=== PATIENT | female | born 1935 | race Caucasian/White ===

== ENCOUNTER 2021-03-05 15:16 | Emergency (ER) | payer OTHER ==
[~2021-03-05] VITALS: Ht 165.1 cm; Wt 68.0 kg
[~2021-03-05 15:16] MED LIST: ALIGN4 MG PO; ASPIRIN325 PO; DIOVAN HCT 3201 EAC1 PO; DULCOLAX5 MG PO; FISH OIL 1,0001 EAC8 PO; FLAGYL500 MG PO; LORAZEPAM 22 MG/1 ML SUBLING; MAGNESIUM400 MG PO; NITROSTAT0.4 MG SUBLING; NORVASC 5 MG TAB5 MG; NORVASC5 MG PO; PREMARIN0.625 MG PO; PROTONIX40 M2 PO; PROVENTIL HFA6.7 G1 PO; ROXANOL 20 M20 MG/ML GT; SPIRIVA INH; SYNTHROID112 MCG PO; VANCOCIN 125 M125 M1 PO; VANCOMYCIN HCL250 MG PO; VITAMIN D-32000 UNIT; VITAMIN D-32000 UNIT PO; VITAMIN E400 UNIT PO; VITAMINC500 PO; ZOFRAN4 MG PO; [UNRECOGNIZED DRUG - OTHER] PO
[2021-03-05 16:24] LABS: ABSOLUTE NEUTROPHILS 9.6 thou/uL (1.4-8.2); BASOPHILS 0.6 % (0.0-2.0); EOSINOPHILS 0.1 % (0.0-3.0); HEMOGLOBIN 11.6 gm/dL (12.0-15.0); LYMPHOCYTES 5.3 % (24.0-44.0); MCV 93.8 fL (80.0-100.0); MONOCYTES 2.7 % (1.0-8.0); PLATELET COUNT 291 thou/uL (150-400); POLYS 91.3 % (36.0-66.0); RBC 3.73 mil/uL (4.20-5.00); WBC 10.5 thou/uL (4.0-11.0)
[2021-03-05] MEDS ORDERED: CLONIDINE HCL0.1 MG PO (16:26)
[2021-03-05] MEDS ORDERED: BENICAR20 MG PO (16:26)
[2021-03-05] MEDS ORDERED: CHLORTHALIDONE25 MG PO (16:30)
[2021-03-05 16:37] LABS: CALCIUM 9.9 mg/dL (8.5-10.1); CREATININE 1.3 mg/dL (0.6-1.0); POTASSIUM 4.6 mmol/L (3.5-5.1)
[2021-03-05 16:48] LABS: ALBUMIN 3.3 g/dL (3.4-5.0); TOTAL BILIRUBIN 0.3 mg/dL (0.2-1.0); TOTAL PROTEIN 6.9 g/dL (6.4-8.2)
[2021-03-05 18:14] LABS: URINE BILIRUBIN NEGATIVE (Negative); URINE BLOOD NEGATIVE (Negative); URINE CLARITY CLEAR; URINE COLOR YELLOW; URINE GLUCOSE-RANDOM* NEGATIVE (Negative); URINE KETONES NEGATIVE (Negative); URINE LEUKOCYTES-REFLEX TRACE (Negative); URINE NITRITE-REFLEX NEGATIVE (Negative); URINE PROTEIN (DIPSTICK) 2+ (Negative); URINE SPECIFIC GRAVITY >= 1.030 (1.005-1.035); URINE UROBILINOGEN 0.2 E.U./dl (0.2-1.0)
[2021-03-05] MEDS ORDERED: CITRATE OF MAG296 M1 PO (19:13)
[2021-03-05] MEDS ORDERED: MIRALAX119 GM PO (19:13)
[2021-03-05 19:15] VITALS: BP 168/69
--- NOTE | 2021-03-06 12:30 | EKG ---
[place] [address] [facility] [place] [address] ELECTROCARDIOGRAM REPORT Name: LOS ALMANZA [id number] Admission: 03/05/21 Attend Phys: Discharge: 03/05/21 Date of : [birth year] Report #: [id number] [facility] ED Test Date: 2021-03-05 Test Time: 15:38:09 Pat Name: LOS ALMANZA Department: Room: Gender: F Rheumatology Nurse: khari : 1935 Requested By: Ariadna Vazquez Order Number: [id number] MD: Terrence Brar Measurements Intervals [place] Rate: 85 P: 28 IA: 181 QRS: -45 QRSD: 104 T: 78 QT: 358 QTc: 426 Interpretive Statements Sinus rhythm Left anterior fascicular block Poor R wave progression Compared to ECG 06/11/2015 08:40:19 Left anterior fascicular block now present Left-axis deviation no longer present Electronically Signed On 03-06-2021 12:29:58 POWER MACHINE OPERATOR by Terrence Brar [email or web address] <ELECTRONICALLY SIGNED> By: Terrence Brar MD 03/06/21 1229 D: [id number] Terrence Brar MD /SARAH
== END 2021-03-05 19:30 | disposition home or self-care (01) ==
LOC: ER 15:16
PROVIDERS: Emergency Medicine
DX: R10.84 Generalized abdominal pain (principal); J44.9 Chronic obstructive pulmonary disease, unspecified; I10 Essential (primary) hypertension; M19.90 Unspecified osteoarthritis, unspecified site; Z79.899 Other long term (current) drug therapy; Z90.710 Acquired absence of both cervix and uterus; Z88.2 Allergy status to sulfonamides; Z88.6 Allergy status to analgesic agent

== ENCOUNTER 2021-04-14 02:11 | Inpatient (IN) | payer OTHER ==
[~2021-04-14] VITALS: Ht 162.6 cm; Wt 87.0 kg
[~2021-04-14 02:11] MED LIST changes: +BENICAR20 MG PO; +CHLORTHALIDONE25 MG PO; +CITRATE OF MAG296 M1 PO; +CLONIDINE HCL0.1 MG PO; +MIRALAX119 GM PO
[2021-04-14 02:12] VITALS: BP 158/85
[2021-04-14 03:41] LABS: ABSOLUTE NEUTROPHILS 10.4 thou/uL (1.4-8.2); BASOPHILS 0.5 % (0.0-2.0); EOSINOPHILS 1.3 % (0.0-3.0); HEMATOCRIT 30.9 % (37.0-47.0); HEMOGLOBIN 10.4 gm/dL (12.0-15.0); LYMPHOCYTES 8.2 % (24.0-44.0); MCH 30.6 pg (26.0-34.0); MCHC 33.7 g/dL (28.0-37.0); MCV 90.8 fL (80.0-100.0); MONOCYTES 7.7 % (1.0-8.0); PLATELET COUNT 343 thou/uL (150-400); POLYS 82.3 % (36.0-66.0); RBC 3.41 mil/uL (4.20-5.00); RDW 13.6 % (10.5-14.5); WBC 12.7 thou/uL (4.0-11.0)
[2021-04-14 03:48] LABS: CALCIUM 9.2 mg/dL (8.5-10.1); CREATININE 1.2 mg/dL (0.6-1.0); POTASSIUM 5.7 mmol/L (3.5-5.1)
[2021-04-14 03:58] LABS: TOTAL BILIRUBIN 0.4 mg/dL (0.2-1.0); TOTAL PROTEIN 6.4 g/dL (6.4-8.2)
[2021-04-14 07:56] VITALS: BP 155/56
--- NOTE | 2021-04-14 08:18 | EKG ---
[address] [place] [address] ELECTROCARDIOGRAM REPORT Name: LOS ALMANZA Room #: 170-4 ADM IN M.R.#: [id number] Admission: 04/14/21 Attend Phys: Audi Hopkins MD Discharge: Date of : [birth year] Report #: [id number] [facility] ED Test Date: 2021-04-14 Test Time: 04:17:40 Pat Name: LOS ALMANZA Department: Room: 170 4 Gender: F Doctor'S Assistant: FERNANDO : 1935 Requested By: Con Gallegos Order Number: [id number] MD: Evangelist Potter Measurements Intervals [place] Rate: 81 P: -10 WA: 146 QRS: -25 QRSD: 101 T: 58 QT: 411 QTc: 477 Interpretive Statements Sinus rhythm Ventricular and atrial premature complexes Borderline left axis deviation Baseline wander in lead(s) V2 Compared to ECG 03/05/2021 15:38:09 Ventricular premature complex(es) now present Left anterior fascicular block no longer present Electronically Signed On 04-14-2021 8:17:51 HYDRO PLANT OPERATOR by Evangelist Potter [email or web address] <ELECTRONICALLY SIGNED> By: Evangelist Potter MD, [facility] 04/14/21 0817 0417 0417 Evangelist Potter MD, [facility] /EPI
[2021-04-14 12:33] VITALS: BP 171/65
[2021-04-14 12:48] VITALS: BP 171/65
[2021-04-14 14:00] VITALS: BP 155/61
--- NOTE | 2021-04-14 14:26 | 2DMMODE ---
[facility] [place] [address] 2 D/M-MODE ECHOCARDIOGRAM Name: LOS ALMANZA Room #: 209-P ADM IN M.R.#: [id number] Admission: 04/14/21 Attend Phys: Janett Bales Discharge: Date of : [birth year] Report #: [id number] THIS REPORT FOR: cc: Matthew Kaplan MD, Todd MD Lammoglia, Francisco J. MD ~ ADDENDUM APPROVED REPORT Study performed: 04/14/2021 12:52:48 EXAM: Comprehensive 2D, Doppler, and color-flow Echocardiogram Patient Location: ER Room #: 15 Status: routine BSA: 2.03 HR: 88 bpm BP: 171/65 mmHg Rhythm: NSR Other Information Study Quality: Good Indications Congestive Heart Failure COPD Atrial Fibrillation Hypertension/HDD 2D Dimensions IVSd: 11.32 (7-11mm) LVOT Diam: 22.28 (18-24mm) LVDd: 44.84 mm PWd: 11.92 (7-11mm) Ascending Ao: 36.08 (22-36mm) LVDs: 28.64 (25-40mm) Left Atrium: 40.40 (27-40mm) Aortic Root: 32.00 mm Aortic Valve AoV Peak Leno.: 1.30 m/s AO Peak Gr.: 6.80 mmHg LVOT Max P.80 mmHg LVOT Max V: 0.97 m/s DENISE Vmax: 2.91 cm2 Mitral Valve E/A Ratio: 1.2 [facility] [place] [place] [address] 2 D/M-MODE ECHOCARDIOGRAM Name: CAMILOS Iman Room #: 209-P [facility] IN .R.#: [id number] Admission: 04/14/21 Attend Phys: Janett Simmons Discharge: Date of : [birth year] Report #: [id number] MV Decel. Time: 177.87 ms MV E Max Leno.: 1.31 m/s MV A Leno.: 1.10 m/s MV PHT: 51.58 ms Pulmonary Valve PV Peak Leno.: 1.37 m/s PV Peak Gr.: 7.56 mmHg Tricuspid Valve TR Peak Leno.: 3.19 m/s TR Peak Gr.: 40.64 mmHg PA Pressure: 51.00 mmHg Left Ventricle The left ventricle is normal size. There is normal LV segmental wall motion. There is normal left ventricular wall thickness. The left ventricular systolic function is normal. The left ventricular ejection fraction is within the normal range. LVEF is 60-65%. This study is not technically sufficient to allow evaluation of the LV diastolic function. Right Ventricle The right ventricle is normal size. The right ventricular systolic function is normal. Atria Left atrium is at the upper limits of normal. Right atrium is at the upper limits of normal. Aortic Valve The aortic valve is normal in structure. The Aortic valve is sclerotic. No aortic regurgitation is present. There is no aortic valvular stenosis. Mitral Valve The mitral valve is normal in structure. Mild mitral regurgitation. No evidence of mitral valve stenosis. Tricuspid Valve The tricuspid valve is normal in structure. There is mild tricuspid regurgitation. Estimated PAP 51 mmHg. There is moderate pulmonary hypertension. Pulmonic Valve The pulmonary valve is normal in structure. There is no pulmonic valvular regurgitation. [facility] [address] [place] [address] 2 D/M-MODE ECHOCARDIOGRAM Name: LOS ALMANZA Room #: 209-P ADM IN M.R.#: [id number] Admission: 04/14/21 Attend Phys: Janett Simmons Discharge: Date of : [birth year] Report #: [id number] Great Vessels The aortic root is normal in size. IVC is dilated and collapses <50% with inspiration. Pericardium There is no pericardial effusion. <Conclusion> The left ventricle is normal size. There is normal left ventricular wall thickness. LVEF is 60-65%. The right ventricle is normal size. Left atrium is at the upper limits of normal. Right atrium is at the upper limits of normal. The aortic valve is normal in structure. The Aortic valve is sclerotic. The mitral valve is normal in structure. Mild mitral regurgitation. The tricuspid valve is normal in structure. There is mild tricuspid regurgitation. Estimated PAP 51 mmHg. There is moderate pulmonary hypertension. The pulmonary valve is normal in structure. The aortic root is normal in size. There is no pericardial effusion. <ELECTRONICALLY SIGNED> By: Scout Zamarripa MD 04/14/21 1425 1425 142 Scout Zamarripa MD /INF
[2021-04-14 19:41] VITALS: BP 157/65
[2021-04-15 03:12] LABS: ABSOLUTE NEUTROPHILS 7.5 thou/uL (1.4-8.2); BASOPHILS 0.2 % (0.0-2.0); EOSINOPHILS 0.1 % (0.0-3.0); HEMATOCRIT 32.4 % (37.0-47.0); HEMOGLOBIN 11.1 gm/dL (12.0-15.0); LYMPHOCYTES 5.9 % (24.0-44.0); MCHC 34.3 g/dL (28.0-37.0); MCV 90.6 fL (80.0-100.0); PLATELET COUNT 323 thou/uL (150-400); POLYS 92.8 % (36.0-66.0); RBC 3.58 mil/uL (4.20-5.00); RDW 13.7 % (10.5-14.5); WBC 8.1 thou/uL (4.0-11.0)
[2021-04-15 03:55] LABS: CALCIUM 9.7 mg/dL (8.5-10.1); CREATININE 1.4 mg/dL (0.6-1.0)
[2021-04-15 04:09] LABS: POTASSIUM 4.4 mmol/L (3.5-5.1)
[2021-04-15 04:36] VITALS: BP 143/60
[2021-04-15 07:21] VITALS: BP 153/52
[2021-04-15 11:25] VITALS: BP 174/56
[2021-04-15 20:15] VITALS: BP 176/79
[2021-04-16 08:00] VITALS: BP 174/56
[2021-04-16 11:00] VITALS: BP 175/72
[2021-04-16 16:00] VITALS: BP 159/62
[2021-04-16 19:49] VITALS: BP 150/56
[2021-04-17 03:30] VITALS: BP 155/74
[2021-04-17 05:59] LABS: CREATININE 1.5 mg/dL (0.6-1.0); POTASSIUM 4.1 mmol/L (3.5-5.1)
[2021-04-17 06:32] LABS: URINE BILIRUBIN NEGATIVE (Negative); URINE BLOOD 1+ (Negative); URINE CLARITY CLEAR; URINE COLOR YELLOW; URINE GLUCOSE-RANDOM* NEGATIVE (Negative); URINE KETONES NEGATIVE (Negative); URINE LEUKOCYTES 1+ (Negative); URINE NITRITE NEGATIVE (Negative); URINE PROTEIN (DIPSTICK) 2+ (Negative); URINE SPECIFIC GRAVITY 1.025 (1.005-1.035); URINE UROBILINOGEN 0.2 E.U./dl (0.2-1.0)
[2021-04-17 07:01] LABS: CASTS None Seen /LPF (None Seen); MUCUS 0-3 Light strn/LPF (None Seen); SQUAMOUS 0-3 Few /LPF (0-3)
[2021-04-17 07:02] LABS: CRYSTALS None Seen /LPF (None Seen); URINE RBC 1-2 Rare /HPF (NONE SEEN); URINE WBC 1-5 Rare /HPF (NONE SEEN)
[2021-04-17 08:10] VITALS: BP 136/46
[2021-04-17 11:50] VITALS: BP 136/54
[2021-04-17 11:56] LABS: CALCIUM 7.1 mg/dL (8.5-10.1); CREATININE 1.1 mg/dL (0.6-1.0)
[2021-04-17 11:58] LABS: BE(vivo) 0.9 mmol/L (-2 to +3); HCO3 29.2 mmol/L (22.0-26.0); PO2 88.2 mmHg (80.0-100.0)
[2021-04-17 11:59] LABS: PCO2 68.2 mmHg (35.0-45.0)
[2021-04-17 11:59] LABS: POTASSIUM 2.9 mmol/L (3.5-5.1)
[2021-04-17 15:50] VITALS: BP 124/45
[2021-04-17 19:15] VITALS: BP 143/61
[2021-04-17 23:20] VITALS: BP 139/48
[2021-04-17 23:53] LABS: BE(vivo) 0.7 mmol/L (-2 to +3); HCO3 29.1 mmol/L (22.0-26.0); PO2 72.1 mmHg (80.0-100.0); sO2 91.3 % (92.0-98.0)
[2021-04-17 23:54] LABS: pH 7.244 (7.360-7.450)
[2021-04-17 23:55] LABS: PCO2 68.8 mmHg (35.0-45.0)
[2021-04-18 04:19] VITALS: BP 141/50
[2021-04-18 05:00] LABS: ALBUMIN 3.1 g/dL (3.4-5.0); CALCIUM 8.6 mg/dL (8.5-10.1); CREATININE 1.5 mg/dL (0.6-1.0); PHOSPHORUS 5.3 mg/dL (2.5-4.9)
[2021-04-18 05:15] LABS: POTASSIUM 5.2 mmol/L (3.5-5.1)
[2021-04-18 07:25] VITALS: BP 147/50
[2021-04-18 09:00] LABS: ALBUMIN 3.2 g/dL (3.4-5.0); CALCIUM 8.8 mg/dL (8.5-10.1); CREATININE 1.5 mg/dL (0.6-1.0); POTASSIUM 5.4 mmol/L (3.5-5.1); TOTAL BILIRUBIN 0.3 mg/dL (0.2-1.0); TOTAL PROTEIN 6.1 g/dL (6.4-8.2)
[2021-04-18 09:21] LABS: BE(vivo) 0.5 mmol/L (-2 to +3); PCO2 53.2 mmHg (35.0-45.0); PO2 89.2 mmHg (80.0-100.0); pH 7.324 (7.360-7.450); sO2 96.1 % (92.0-98.0)
[2021-04-18 11:15] VITALS: BP 136/59
[2021-04-18 15:30] VITALS: BP 141/44
[2021-04-18 20:16] VITALS: BP 160/52
[2021-04-19 03:35] VITALS: BP 146/54
[2021-04-19 07:06] LABS: HEMATOCRIT 26.7 % (37.0-47.0); HEMOGLOBIN 9.2 gm/dL (12.0-15.0); MCH 30.6 pg (26.0-34.0); MCHC 34.4 g/dL (28.0-37.0); MCV 89.1 fL (80.0-100.0); RDW 12.8 % (10.5-14.5); WBC 5.8 thou/uL (4.0-11.0)
[2021-04-19 07:17] LABS: ALBUMIN 3.3 g/dL (3.4-5.0); CALCIUM 8.7 mg/dL (8.5-10.1); CREATININE 1.7 mg/dL (0.6-1.0); MAGNESIUM 2.4 mg/dL (1.8-2.4); POTASSIUM 5.1 mmol/L (3.5-5.1); TOTAL BILIRUBIN 0.7 mg/dL (0.2-1.0); TOTAL PROTEIN 6.4 g/dL (6.4-8.2)
[2021-04-19 07:20] VITALS: BP 135/41
[2021-04-19 11:15] VITALS: BP 140/46
[2021-04-19 11:45] LABS: BE(vivo) 1.6 mmol/L (-2 to +3); HCO3 29.4 mmol/L (22.0-26.0); PCO2 63.5 mmHg (35.0-45.0); PO2 91.9 mmHg (80.0-100.0); sO2 95.9 % (92.0-98.0)
[2021-04-19 11:46] LABS: pH 7.283 (7.360-7.450)
[2021-04-19 16:05] VITALS: BP 147/46
[2021-04-19 20:00] VITALS: BP 152/57
[2021-04-20 03:09] LABS: HEMATOCRIT 27.3 % (37.0-47.0); HEMOGLOBIN 9.4 gm/dL (12.0-15.0); MCH 30.9 pg (26.0-34.0); MCHC 34.5 g/dL (28.0-37.0); MCV 89.5 fL (80.0-100.0); RBC 3.05 mil/uL (4.20-5.00); RDW 13.1 % (10.5-14.5); WBC 7.9 thou/uL (4.0-11.0)
[2021-04-20 04:14] LABS: ALBUMIN 3.4 g/dL (3.4-5.0); CALCIUM 8.8 mg/dL (8.5-10.1); CREATININE 1.8 mg/dL (0.6-1.0); MAGNESIUM 2.3 mg/dL (1.8-2.4); PHOSPHORUS 4.8 mg/dL (2.5-4.9); POTASSIUM 5.3 mmol/L (3.5-5.1)
[2021-04-20 04:45] VITALS: BP 162/53
[2021-04-20 08:29] VITALS: BP 163/51
[2021-04-20 11:54] LABS: CALCIUM 8.9 mg/dL (8.5-10.1); CREATININE 1.8 mg/dL (0.6-1.0); POTASSIUM 4.9 mmol/L (3.5-5.1)
[2021-04-20 17:36] LABS: BE(vivo) 2.6 mmol/L (-2 to +3); HCO3 29.1 mmol/L (22.0-26.0); PCO2 55.1 mmHg (35.0-45.0); PO2 90.1 mmHg (80.0-100.0); sO2 96.3 % (92.0-98.0)
[2021-04-20 18:36] LABS: CALCIUM 8.4 mg/dL (8.5-10.1); CREATININE 1.8 mg/dL (0.6-1.0); POTASSIUM 4.7 mmol/L (3.5-5.1)
[2021-04-20 20:00] VITALS: BP 138/47
[2021-04-21 03:08] LABS: HEMATOCRIT 25.2 % (37.0-47.0); HEMOGLOBIN 8.7 gm/dL (12.0-15.0); MCH 31.3 pg (26.0-34.0); MCHC 34.7 g/dL (28.0-37.0); MCV 90.1 fL (80.0-100.0); RBC 2.79 mil/uL (4.20-5.00); RDW 13.1 % (10.5-14.5); WBC 8.2 thou/uL (4.0-11.0)
[2021-04-21 03:16] LABS: CALCIUM 8.6 mg/dL (8.5-10.1); CREATININE 1.7 mg/dL (0.6-1.0); MAGNESIUM 1.8 mg/dL (1.8-2.4); POTASSIUM 4.8 mmol/L (3.5-5.1)
[2021-04-21 06:13] VITALS: BP 154/59
[2021-04-21 07:24] VITALS: BP 132/48
[2021-04-21 13:57] LABS: CALCIUM 8.8 mg/dL (8.5-10.1); CREATININE 1.8 mg/dL (0.6-1.0); POTASSIUM 4.6 mmol/L (3.5-5.1)
[2021-04-21 15:29] VITALS: BP 118/34
[2021-04-21 20:15] VITALS: BP 121/39
[2021-04-22] VITALS (7 sets, daily range): BP systolic 118–127; BP diastolic 32–35
[2021-04-22 05:04] LABS: CALCIUM 7.9 mg/dL (8.5-10.1); CREATININE 1.9 mg/dL (0.6-1.0); MAGNESIUM 2.6 mg/dL (1.8-2.4); POTASSIUM 4.9 mmol/L (3.5-5.1)
[2021-04-22 05:23] LABS: HEMATOCRIT 23.6 % (37.0-47.0); HEMOGLOBIN 7.9 gm/dL (12.0-15.0); MCH 30.5 pg (26.0-34.0); MCHC 33.7 g/dL (28.0-37.0); MCV 90.7 fL (80.0-100.0); RBC 2.6 mil/uL (4.20-5.00); RDW 12.8 % (10.5-14.5); WBC 16.4 thou/uL (4.0-11.0)
[2021-04-22 08:22] LABS: BE(vivo) 2.9 mmol/L (-2 to +3); HCO3 30.5 mmol/L (22.0-26.0); PCO2 66.3 mmHg (35.0-45.0); PO2 72.4 mmHg (80.0-100.0); pH 7.281 (7.360-7.450); sO2 92.1 % (92.0-98.0)
--- NOTE | 2021-04-22 11:51 | HC ---
[facility] [place] [place] [address] CONSULTATION Name: LOS ALMANZA Room #: 203-P ADM IN M.R.#: [id number] Admission: 04/14/21 Attend Phys: Janett Bales Discharge: Date of : [birth year] Report #: [id number] THIS REPORT FOR: cc: Matthew Kaplan MD, Todd MD Khosla,Dino Daly MD ~ DATE OF SERVICE: 04/18/2021 HISTORY OF PRESENT ILLNESS: This is an 85-year-old female patient who was evaluated by me for altered mental status. I will discuss this patient with hospitalist tomorrow. I talked to the daughter in detail. This patient was having pretty significant medical issues. She has a history of COPD, which is longstanding. She has a history of congestive heart failure with edema all over the body. She was admitted to [facility] and she was on the supplemental oxygen. At one time, she was unresponsive. At that time, her sodium was also very low. Sodium has been corrected and then she has started to become better and she is responsive to the family now. Her breathing continued to be a problem. Pulmonary is seeing this patient. REVIEW OF SYSTEMS: A 14-point review of systems is very extensive in this patient. She has a history of coronary artery disease, hypothyroidism, hypertension, congestive heart failure, pulmonary nodules, COPD. She has a poor appetite. Presently, the patient is on BiPAP. She has a history of depression as per record. She is being followed by multiple consultants at the moment. Cardiology is also on the case. Apparently, she also has a history of paroxysmal atrial fibrillation. She has a history of hyperlipidemia. She has a history of kidney disease. She has a history of falls. This was a relevant 14-point review of system. PAST MEDICAL HISTORY: Positive for COPD and congestive heart failure. FAMILY HISTORY: Unremarkable. SOCIAL HISTORY: She has family in the room and I talked to them in the record indicated that she had exposure to the secondhand smoke. PHYSICAL EXAMINATION: Limited. She was on the BiPAP and she is very hard of hearing. She has difficult time understanding my instructions. However, when daughter helped me, I can tell as speech. I cannot talk about cognitive evaluation because it is not possible with the BiPAP; however, she did follow simple commands. She moved both sides. Difficult to tell about the cranial nerve examination. I could not tell about the sensory and reflexes are diminished. Rest of the examination was attempted, but it was not possible. She is on BiPAP. She does have generalized edema, because of that pulses are difficult to feel. She is hard of hearing, but I think she can see. [facility] [address] [place] [address] CONSULTATION Name: LOS ALMANZA Room #: 203-P [facility] IN M.R.#: [id number] Admission: 04/14/21 Attend Phys: Janett Bales Discharge: Date of : [birth year] Report #: [id number] VITAL SIGNS: Blood pressure is 141/44, respirations 20, pulse is 72, temperature is 96.1. LABORATORY DATA: Indicate that white count was up, but it is okay now. Sodium is 124. GFR is 33. Though she is hyponatremic, but she is having diuretics. TSH is high. She did have a CT scan of the head that was reviewed and that does not appear to be showing any abnormality. IMPRESSION: This patient's encephalopathy is because of multiple systemic problems this patient has. Stroke cannot be ruled out. She is on a high risk of having a stroke because she is in atrial fibrillation and is not chronically anticoagulated. I discussed with the family that stroke cannot be excluded, but more common cause is encephalopathy. I did discuss with them other options including the option of doing the more workup for the stroke, which is going to be very difficult in her case because she is on BiPAP and doing an MRI will be very difficult and she has kidney failure and it is not desirable to give her a dye. They understand that. They do not want to proceed. I discussed all of it with the family in detail. The present thing is I will send myasthenia markers on this patient, but otherwise I will sign off. Please call if there is any further question. <ELECTRONICALLY SIGNED> By: Dino Timmons MD 04/22/21 1151 1557 0050 Dino Timmons MD /nt
[2021-04-22] MEDS ORDERED: IPRAT-ALBUT 0.5-3 ML INH (15:15)
[2021-04-22] MEDS ORDERED: CARVEDILOL12.5 MG PO (15:16)
[2021-04-22] MEDS ORDERED: NORVASC5 MG PO (15:18)
[2021-04-22] MEDS ORDERED: PREDNISONE 10 M10 MG PO (15:42)
[2021-04-22] MEDS ORDERED: LEVOFLOXACIN750 MG PO (15:42)
[2021-04-22 16:00] LABS: URINE BILIRUBIN NEGATIVE (Negative); URINE BLOOD NEGATIVE (Negative); URINE CLARITY SL CLOUDY; URINE COLOR YELLOW; URINE GLUCOSE-RANDOM* NEGATIVE (Negative); URINE KETONES NEGATIVE (Negative); URINE NITRITE-REFLEX NEGATIVE (Negative); URINE PROTEIN (DIPSTICK) 2+ (Negative); URINE UROBILINOGEN 0.2 E.U./dl (0.2-1.0)
[2021-04-22 16:08] LABS: URINE LEUKOCYTES-REFLEX 2+ (Negative)
[2021-04-22 17:53] LABS: CASTS None Seen /LPF (None Seen); SQUAMOUS 0-3 Few /LPF (0-3); URINE WBC-REFLEX 0-5 Rare /HPF (0-5)
[2021-04-22 17:54] LABS: BACTERIA-REFLEX >30 Many /HPF (None Seen); TRIPLE PHOSPHATE CRYSTALS >10 Many /LPF (None Seen); URINE RBC 1-2 Rare /HPF (NONE SEEN)
== END 2021-04-22 17:02 | disposition home or self-care (01) | DRG 291 ==
LOC: ER 02:11 → 2N 04:26 → EROBS 04:26 → 2N 14:01
PROVIDERS: Emergency Medicine; Internal Medicine; Internal Medicine Cardiovascular Disease; Internal Medicine Nephrology; Nurse Practitioner; Nurse Practitioner Family; ADMIT Hospitalist; ATTEND Hospitalist
PROC: 02HV33Z Insertion of Infusion Device into Superior Vena Cava, Percutaneous Approach (ICD-10-PCS; principal; 2021-04-14)
PROC: 5A09457 Assistance with Respiratory Ventilation, 24-96 Consecutive Hours, Continuous Positive Airway Pressure (ICD-10-PCS; 2021-04-14)
DX: I13.0 Hypertensive heart and chronic kidney disease with heart failure and stage 1 through stage 4 chronic kidney disease, or unspecified chronic kidney disease (principal); I50.33 Acute on chronic diastolic (congestive) heart failure; G92.9 Unspecified toxic encephalopathy; J96.21 Acute and chronic respiratory failure with hypoxia; E43 Unspecified severe protein-calorie malnutrition; N17.9 Acute kidney failure, unspecified; J44.1 Chronic obstructive pulmonary disease with (acute) exacerbation; E22.2 Syndrome of inappropriate secretion of antidiuretic hormone; Z68.32 Body mass index [BMI] 32.0-32.9, adult; Z88.2 Allergy status to sulfonamides; Z20.822 Contact with and (suspected) exposure to COVID-19; N18.9 Chronic kidney disease, unspecified; J44.9 Chronic obstructive pulmonary disease, unspecified; I48.0 Paroxysmal atrial fibrillation; Z79.01 Long term (current) use of anticoagulants; I25.10 Atherosclerotic heart disease of native coronary artery without angina pectoris; F32.A Depression, unspecified; E87.5 Hyperkalemia; E03.9 Hypothyroidism, unspecified; Z79.899 Other long term (current) drug therapy
CPT/HCPCS: 10081